=== PATIENT | male | born 1975 | race Caucasian/White ===

== ENCOUNTER 2023-02-05 17:16 | Emergency (ER) | payer OTHER, SELFPAY ==
[2023-02-05 17:36] VITALS: BP 115/80; PULSE 83; RESP 18; TEMP 36.6; O2SAT 97; BMI 39.5
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
[2023-02-05] MEDS: TETANUS/DIPHTH/PERTUSSIS 0.5 ML SYRINGE IM (19:00)
--- NOTE | 2023-02-05 19:22 | ED.NURSE ---
irrigation done on the foot and dtap given
--- NOTE | 2023-02-05 19:23 | ED.NURSE ---
Dr. Alvarado is in suturing the patient.
== END 2023-02-05 19:51 | disposition home or self-care (01) ==
PROVIDERS: Emergency Provider Family Medicine
DX: S91.312A Laceration without foreign body, left foot, initial encounter (principal)
CPT/HCPCS: 12001; 90471; 90715; 99283; 99284